=== PATIENT | female | born 1940 | race African-American/Black ===

== ENCOUNTER 2019-06-11 07:34 | Emergency (ER) | payer MEDICARE, OTHER ==
[~2019-06-11] VITALS: Ht 167.6 cm; Wt 65.0 kg
[2019-06-11] MEDS ORDERED: DEXTROSE 50% WATER 50ML SYRINGE IV ONE ×2 (07:42→07:43)
[2019-06-11 08:09] LABS: BASOPHILS % 0.6 % (0.0-2.0); EOSINOPHILS % 1.2 % (0.0-5.0); HEMOGLOBIN. 14.5 g/dL (12.0-16.0); LYMPHOCYTES % 15.7 % (20.0-50.0); MEAN CORPUSCULAR HEMOGLOBIN 27.8 pg (28.0-32.0); MEAN CORPUSCULAR VOLUME 86.5 fL (81.0-99.0); MONOCYTES % 6.8 % (2.0-8.0); NEUTROPHILS % 75.7 % (40.0-76.0); PLATELET 268 x1000/uL (130-400); RED CELL DISTRIBUTION WIDTH 15.2 % (11.6-14.6)
[2019-06-11 08:10] LABS: CHLORIDE 107 mEq/L (98-107)
[2019-06-11 09:31] LABS: INR 1.1; PROTHROMBIN TIME 11.1 sec (9.6-11.0)
[2019-06-11 12:16] VITALS: BP 158/84
== END 2019-06-11 13:09 | disposition home or self-care (01) ==
LOC: ER 07:34 → EDBD 07:34 → ER 13:09 → CANBEDREQ 17:59
DX: E16.2 Hypoglycemia, unspecified (principal)
CPT/HCPCS: 36415; 71045; 82962; 83605; 84145; 84484; 93005; 99284